=== PATIENT | female | born 1965 | race Caucasian/White ===

== ENCOUNTER 2020-06-12 08:50 | Outpatient (REF) | payer BC, SELFPAY ==
[2020-06-12 11:11] LABS: MANUAL DIFF FLAG NO
[2020-06-12 11:28] LABS: Basophils Absolute Auto 0.1 X10*3/uL (0.0-0.2); Basophils Percent Auto 1.2 % (0-2); Eosinophils Absolute Auto 0.5 X10*3/uL (0.0-0.4); Hematocrit 41.8 % (37-47); Hemoglobin 13.5 g/dl (12.0-16.0); Imm Gran Abs Auto 0.01 X10*3/uL (0.00-0.03); Imm Gran Pct Auto 0.2 % (0.0-0.4); Lymphocytes Absolute Auto 1.8 X10*3/uL (1.2-4.9); Lymphocytes Percent Auto 27.5 % (20-40); Mean Corpuscular HGB Conc 32.3 g/dl (31.0-35.0); Mean Corpuscular Hemoglobin 29.9 pg (27.0-33.0); Mean Corpuscular Volume 92.7 fL (80-98); Mean Platelet Volume 9.4 fL (9.4-12.3); Monocytes Absolute Auto 0.5 X10*3/uL (0.1-1.2); Monocytes Percent Auto 7.1 % (2-11); Neutrophils Absolute Auto 3.7 X10*3/uL (2.0-8.3); Platelet Count 293 X10*3/uL (160-400); Red Blood Count 4.51 X10*6/uL (4.20-5.50); Red Cell Distribution Width 11.3 % (11.0-16.0); White Blood Count 6.4 X10*3/uL (4.8-10.8)
[2020-06-12 11:42] LABS: Alanine Aminotransferase 19 U/L (0-31); Albumin Level 4.3 g/dL (3.5-5.0); Alkaline Phosphatase 66 U/L (39-117); Anion Gap 11 (12-20); Aspartate Amino Transferase 22 U/L (5-31); Bilirubin Total 0.6 mg/dL (0.0-1.0); Blood Urea Nitrogen 12 mg/dL (9-16); Calcium 9.5 mg/dL (8.4-10.2); Carbon Dioxide 30 mmol/L (22-29); Chloride 104 mmol/L (96-108); Cholesterol 219 mg/dL; Estimated Glomerular Filt Rate > 60; Glucose Fasting 84 mg/dL (60-99); HDL Cholesterol 73 mg/dL; LDL Cholesterol Calculated 127 mg/dl; Potassium 4.7 mmol/l (3.3-5.1); Sodium 140 mmol/L (135-145); Total Protein 6.7 g/dL (6.5-8.0); Triglycerides 98 mg/dL
[2020-06-12 12:06] LABS: TSH reflex Free T4 2.34 mIU/mL (0.32-4.0)
== END 2020-06-12 08:51 | disposition home or self-care (01) ==
LOC: HO.HMGCLDS 08:50
PROVIDERS: PCP Nurse Practitioner Family; Visit Provider Nurse Practitioner Family
DX: Z00.00 Encounter for general adult medical examination without abnormal findings (principal); Z78.0 Asymptomatic menopausal state
CPT/HCPCS: 36415; 80053; 80061; 82306; 84443; 85025

== ENCOUNTER → 2020-06-28 14:55 | Outpatient (BNVA) | payer BC, SELFPAY | PROVIDERS: PCP Nurse Practitioner Family; Visit Provider Nurse Practitioner Family | DX: Z76.89 Persons encountering health services in other specified circumstances (principal) ==

== ENCOUNTER → 2020-10-16 13:12 | Outpatient (BNVA) | payer BC, SELFPAY | PROVIDERS: PCP Nurse Practitioner Family; Visit Provider Internal Medicine Cardiovascular Disease | DX: R07.9 Chest pain, unspecified (principal) | CPT/HCPCS: 93005 ==

== ENCOUNTER 2020-11-14 07:03 | Day surgery (SDC) | payer BC, SELFPAY ==
--- NOTE | 2020-11-09 12:53 | HO.ANESPROP2 ---
Documented by User: Brianna Lita 11/10/20 08:40 HPI - Anesthesia Eval Consult details Narrative: 55yo F for Colonoscopy Recently seen by cardiology for exertional CP. Exercise stress negative. No further testing. (Active runner) *mult med allergies* PMFSH Active Problems Active Problems: All Active Problems (Updated 10/23/20 @ 13:02 by Joselo Palomares, [facility]) Plantar fasciitis (Acute) Chest pain (Acute) Retracted ear drum (Acute) Post-menopausal (Acute) Screening for colon cancer (Acute) Physical exam (Acute) Past Medical History Medical History (Updated 11/14/20 @ 07:49 by Tianna Bliss) BPV (benign positional vertigo) Hyperlipidemia Hypothyroid Retracted ear drum Family History Family History Father Unknown family medical history Mother Colon cancer Unknown family medical history Maternal Grandmother Cardiomyopathy Maternal Grandfather Myeloma Paternal Grandmother Medical history non-contributory Paternal Grandfather Medical history non-contributory Brother No problems noted. Brother No problems noted. Brother HTN (hypertension) Diabetes mellitus Son No problems noted. Son No problems noted. Surgical History Surgical History History of section History of nasal septoplasty History of repair of rotator cuff History of tonsillectomy Hx of removal of ovary Social History Social History Alcohol intake: never Patient Tobacco Use Status: Never used Tobacco Use of substances other than those prescribed or required for medical reasons: No Are you DNR?: No Advance Directives: Yes Advance Directives Information Provided: Yes Advance Directives on File: No Meds Allergies Allergy/AdvReac Type Severity Reaction Status Date / Time amoxicillin [Augmentin] Allergy Unknown rash Verified 10/16/20 13:19 cefuroxime [From Ceftin] Allergy Unknown Hives Verified 10/16/20 13:19 clavulanic acid [Augmentin] Allergy Unknown rash Verified 10/16/20 13:19 clindamycin [Cleocin] Allergy Unknown hives Verified 10/16/20 13:19 penicillin V Allergy Unknown rash Verified 10/16/20 13:19 Penicillins Allergy Unknown rash Verified 10/16/20 13:19 Home Medications Medication Instructions Recorded Confirmed Last Taken Type bupropion HCl 300 mg 24 hr tablet, 300 mg PO DAILY 06/08/20 10/16/20 Unknown History extended release Exam Exam Date and Time: November 09, 2020 1253 Narrative Narrative: EKG 10/2020 Normal sinus rhythm, normal EKG, QTC 430 milliseconds. Exercise stress 2020 exercise stress test where she was able to exercise to 12.7 Mets without any ECG changes or symptoms. She continues to be active and has been running marathons without any symptoms. Assessment and Plan Assessment Anesthesia Assessment: Chart Reviewed Documented by User: Tianna Bliss 11/14/20 07:50 PMF Past Medical History Medical History (Updated 11/14/20 @ 07:49 by Tianna Bliss) BPV (benign positional vertigo) Hyperlipidemia Hypothyroid Retracted ear drum Family History Family History Father Unknown family medical history Mother Colon cancer Unknown family medical history Maternal Grandmother Cardiomyopathy Maternal Grandfather Myeloma Paternal Grandmother Medical history non-contributory Paternal Grandfather Medical history non-contributory Brother No problems noted. Brother No problems noted. Brother HTN (hypertension) Diabetes mellitus Son No problems noted. Son No problems noted. Family history of problems with anesthesia: No Surgical History Surgical History History of section History of nasal septoplasty History of repair of rotator cuff History of tonsillectomy Hx of removal of ovary History of Problems with Anesthesia: No Social History Social History Alcohol intake: never Patient Tobacco Use Status: Never used Tobacco Use of substances other than those prescribed or required for medical reasons: No Are you DNR?: No Advance Directives: Yes Advance Directives Information Provided: Yes Advance Directives on File: No Meds Allergies Allergy/AdvReac Type Severity Reaction Status Date / Time amoxicillin [Augmentin] Allergy Unknown rash Verified 10/16/20 13:19 cefuroxime [From Ceftin] Allergy Unknown Hives Verified 10/16/20 13:19 clavulanic acid [Augmentin] Allergy Unknown rash Verified 10/16/20 13:19 clindamycin [Cleocin] Allergy Unknown hives Verified 10/16/20 13:19 penicillin V Allergy Unknown rash Verified 10/16/20 13:19 Penicillins Allergy Unknown rash Verified 10/16/20 13:19 Home Medications Medication Instructions Recorded Confirmed Last Taken Type bupropion HCl 300 mg 24 hr tablet, 300 mg PO DAILY 06/08/20 10/16/20 Unknown History extended release Exam Height,Weight and Vital Signs: Vital Signs Temp Pulse Resp BP Pulse Ox 11/14/20 07:19 98.5 F 75 16 115/64 99 Airway Mallampati Class: II TM Dist: >3cm Neck ROM: Full Loose/Missing/Broken Teeth: No Heart: RRR Lungs: CTAB Assessment and Plan Assessment Anesthesia Assessment: Anesthesia Plan Discussed and Chart Reviewed Final Anesthetic Review NPO: Yes ASA Class: II Final Preanesthetic Review: No Changes in Pt Med Stat, Meds/Allgs Chart Reviewed, Consent Obtained/Reviewed and Anes Risks/Benef Reviewed Patient Risk: Low Procedure Risk: Low Assessment/Block/Sedation in SS: Assess/Block/Sedation-SS Anesthetic Plan Anesthetic Plan: MAC: Disposition: Standard PACU
[2020-11-14 07:09] VITALS: BMI 25.0
[2020-11-14 07:19] VITALS: BP 115/64; PULSE 75; RESP 16; TEMP 36.9; O2SAT 99
[2020-11-14] MEDS: Lactated Ringers 1,000 ML 100 ML IVCONT (07:33)
--- NOTE | 2020-11-14 08:08 | P.OP_ITS ---
Operative Note Operative Note Date of Service: 11/14/20 Narrative: Pre-op diagnosis: Colon cancer screening, family history of colon cancer (mom was diagnosed with stage IV colon cancer at age 68 years) Post-op diagnosis: other (Diverticulosis) Procedure: COLONOSCOPY TILL CECUM Consent: Indications for the procedure and potential complications of bleeding, perforation, reaction to medications and missed diagnosis were discussed with the patient and informed consent was obtained. Instrument: Olympus PCF H 190 L variable stiffness pediatric colonoscope Monitoring: Vital signs and clinical assessment, intermittent blood pressure monitoring, continuous EKG monitoring, Pulse oximetry and Carbon Dioxide monitoring were done throughout the procedure. Colon withdrawl time was 26 minutes. Procedure: The patient was placed in the left lateral decubitis position and pre-procedure medications were administered. After a digital rectal examination of the ano-rectum, the video colonoscope was inserted into the rectum and advanced through the colon to the cecum. The colonoscope was slowly withdrawn in a retrograde panoramic fashion and the colon mucosa was carefully examined including a retroflexed view of the rectum. Findings and interventions are described below. Procedure Difficulty: Colon was long and tortuous and there was some loop formation - no maneuvers were required Findings: Terminal Ileum: Not evaluated Cecum: Normal Ascending Colon: Normal Transverse Colon: Normal Descending Colon: Normal Sigmoid Colon: Moderate diverticulosis Rectum: Normal Ano-rectum: Normal Colon preparation: Good after copious irrigation (pt stated she vomited part of her prep) Impression and Post Procedure Diagnosis: Colonoscopy Findings: No polyps were detected Moderate diverticulosis seen in the sigmoid colon Plan: Repeat Colonoscopy in 10 years (since this is her 4th negative colonoscopy). Above findings were reviewed with the patient and diverticulosis handout was given in the discharge area Surgeon: Anthony Haro MD Anesthesia: MAC (Bia Cummings CRNA & Dr Bliss) Was an Hardboard Factory Worker used for this Procedure?: Yes Hardboard Factory Worker: Praful Ford Estimated blood loss (mL): 0 Pathology: none sent Condition: stable Disposition: PACU
--- NOTE | 2020-11-14 08:08 | MHC.SHP ---
Pre-Procedural Eval Section A The patient is an INPATIENT: No The History & Physical has been completed within 30 days and I have reviewed it.: No Section B Chief Complaint: Screening Details of Present Illness: Colon cancer screening, family history of colon cancer (Mom diagnosed with stage 4 colon cancer at age 68 yrs) Relevant Family History (Specify if Yes): Yes Relevant Social History: None Present Medications: see Short Stay Collaborative assessment Medical History: Significant History (BPV (benign positional vertigo) Hyperlipidemia Hypothyroid Retracted ear drum) History of Previous Operations: Relevant previous surgery/procedure and date(s) (History of section History of nasal septoplasty History of repair of rotator cuff History of tonsillectomy Hx of removal of ovary) Allergies: Allergies Allergy/AdvReac Type Severity Reaction Status Date / Time amoxicillin [Augmentin] Allergy Unknown rash Verified 10/16/20 13:19 cefuroxime [From Ceftin] Allergy Unknown Hives Verified 10/16/20 13:19 clavulanic acid [Augmentin] Allergy Unknown rash Verified 10/16/20 13:19 clindamycin [Cleocin] Allergy Unknown hives Verified 10/16/20 13:19 penicillin V Allergy Unknown rash Verified 10/16/20 13:19 Penicillins Allergy Unknown rash Verified 10/16/20 13:19 Review of Systems Sugical H&P ROS: Negative: Constitution, Cardiovascular, Respiratory and Gastrointestinal Exam Surgical H&P Exam: Normal: Heart, Normal: Lungs, Normal: Extremities and Normal: Abdomen Plan Diagnosis/Plan: Unchanged I have reviewed the history and physical and performed a pertinent physical examination on my patient. No changes have occurred unless specified.
[2020-11-14 08:58] VITALS: BP 111/62; PULSE 67; RESP 16; TEMP 36.9; O2SAT 98
[2020-11-14 09:13] VITALS: BP 121/75; PULSE 55; RESP 18; TEMP 36.9; O2SAT 98
== END 2020-11-14 10:00 | disposition home or self-care (01) ==
PROVIDERS: PCP Nurse Practitioner Family; Visit Provider Internal Medicine Gastroenterology
PROC: 0DJD8ZZ Inspection of Lower Intestinal Tract, Via Natural or Artificial Opening Endoscopic (ICD-10-PCS; CPT 45378; principal; 2020-11-14 08:20)
DX: Z12.11 Encounter for screening for malignant neoplasm of colon (principal); Z80.0 Family history of malignant neoplasm of digestive organs; K57.30 Diverticulosis of large intestine without perforation or abscess without bleeding; H81.10 Benign paroxysmal vertigo, unspecified ear; Z79.899 Other long term (current) drug therapy; Z88.0 Allergy status to penicillin
CPT/HCPCS: 45378

== ENCOUNTER 2022-01-18 09:44 | Outpatient (REF) | payer BC, SELFPAY ==
[2022-01-18 11:54] LABS: MANUAL DIFF FLAG NO
[2022-01-18 12:04] LABS: Basophils Absolute Auto 0.1 X10*3/uL (0.0-0.2); Basophils Percent Auto 1.1 % (0-2); Eosinophils Absolute Auto 0.5 X10*3/uL (0.0-0.4); Eosinophils Percent Auto 6.6 % (0-4); Hematocrit 39.2 % (37.0-47.0); Hemoglobin 13.2 g/dl (12.0-16.0); Imm Gran Abs Auto 0.02 X10*3/uL (0.00-0.03); Imm Gran Pct Auto 0.3 % (0.0-0.4); Lymphocytes Absolute Auto 1.6 X10*3/uL (1.2-4.9); Lymphocytes Percent Auto 22.7 % (20-40); Mean Corpuscular HGB Conc 33.7 g/dl (31.0-35.0); Mean Corpuscular Volume 89.1 fL (80.0-98.0); Mean Platelet Volume 9.7 fL (9.4-12.3); Monocytes Absolute Auto 0.6 X10*3/uL (0.1-1.2); Monocytes Percent Auto 8.9 % (2-11); Neutrophils Absolute Auto 4.2 x10*3/uL (2.0-8.3); Neutrophils Percent Auto 60.4 % (45-73); Platelet Count 318 X10*3/uL (160-400); Red Cell Distribution Width 11.3 % (11.0-16.0)
[2022-01-18 12:17] LABS: Appearance Urine HAZY; Color Urine YELLOW; Glucose Urine UA NEG (NEG); Leukocyte Esterase Urine NEG (NEG); Nitrite Urine NEG (NEG); PH 5.5 (5.0-8.0); Specific Gravity - Urine 1.025 (1.005-1.025); Urine Blood NEG (NEG); Urine Ketones NEG (NEG); Urine Protein NEG (NEG-TRACE)
[2022-01-18 12:34] LABS: Alanine Aminotransferase 26 U/L (0-31); Albumin Level 4.2 g/dL (3.5-5.0); Alkaline Phosphatase 62 U/L (39-117); Anion Gap 13 (12-20); Aspartate Amino Transferase 26 U/L (5-31); Bilirubin Total 0.7 mg/dL (0.0-1.0); Blood Urea Nitrogen 14 mg/dL (9-16); Calcium 9.3 mg/dL (8.4-10.2); Carbon Dioxide 27 mmol/L (22-29); Chloride 104 mmol/L (96-108); Cholesterol 220 mg/dL; Estimated Glomerular Filt Rate > 60; Glucose Fasting 89 mg/dL (60-99); HDL Cholesterol 68 mg/dL; Iron 141 mcg/dL (30-160); LDL Cholesterol Calculated 123 mg/dl; Percent Iron Saturation 41 % (15-50); Potassium 4.7 mmol/L (3.3-5.1); Sodium 139 mmol/L (135-145); Total Iron Binding Capacity 341 mcg/dL (228-428); Total Protein 6.7 g/dL (6.5-8.0); Triglycerides 149 mg/dL; Unsaturated Iron Binding 200 ug/dL
[2022-01-18 12:39] LABS: Ferritin 46 ng/mL (10-250); TSH reflex Free T4 2.29 uIU/mL (0.32-4.0)
[2022-01-18 12:52] LABS: Folate 11.7 ng/mL (> or = 4.0); Vitamin B12 665 pg/mL (200-900)
== END 2022-01-18 09:45 | disposition home or self-care (01) ==
LOC: HO.HMGCLDS 09:44
PROVIDERS: PCP Nurse Practitioner Family; Visit Provider Nurse Practitioner Family
DX: Z00.00 Encounter for general adult medical examination without abnormal findings (principal); R53.83 Other fatigue
CPT/HCPCS: 36415; 80053; 80061; 81003; 82607; 82728; 82746; 83540; 84443; 85025

== ENCOUNTER 2022-04-24 10:17 | Outpatient (REF) | payer BC, SELFPAY ==
[2022-04-24 12:28] LABS: Cholesterol 223 mg/dL; HDL Cholesterol 73 mg/dL; LDL Cholesterol Calculated 129 mg/dl; Triglycerides 106 mg/dL
== END 2022-04-24 10:18 | disposition home or self-care (01) ==
LOC: HO.HMGCLDS 10:17
PROVIDERS: PCP Nurse Practitioner Family; Visit Provider Nurse Practitioner Family
DX: E78.5 Hyperlipidemia, unspecified (principal)
CPT/HCPCS: 36415; 80061

== ENCOUNTER 2022-08-30 10:45 | Outpatient (REF) | payer BC, SELFPAY ==
[2022-08-30 13:42] LABS: Alanine Aminotransferase 24 U/L (0-31); Albumin Level 4.4 g/dL (3.5-5.0); Alkaline Phosphatase 65 U/L (39-117); Anion Gap 12 (12-20); Aspartate Amino Transferase 32 U/L (5-31); Bilirubin Total 0.9 mg/dL (0.0-1.0); Blood Urea Nitrogen 16 mg/dL (9-16); Calcium 9.6 mg/dL (8.4-10.2); Carbon Dioxide 26 mmol/L (22-29); Chloride 108 mmol/L (96-108); Cholesterol 215 mg/dL; Estimated Glomerular Filt Rate > 60; Glucose Random 94 mg/dL (60-115); HDL Cholesterol 74 mg/dL; LDL Cholesterol Calculated 128 mg/dl; Potassium 4.8 mmol/L (3.3-5.1); Sodium 141 mmol/L (135-145); Total Protein 6.9 g/dL (6.5-8.0); Triglycerides 65 mg/dL
== END 2022-08-30 10:46 | disposition home or self-care (01) ==
LOC: HO.HMGCLDS 10:45
PROVIDERS: PCP Nurse Practitioner Family; Visit Provider Nurse Practitioner Family
DX: E78.5 Hyperlipidemia, unspecified (principal)
CPT/HCPCS: 36415; 80053; 80061

== ENCOUNTER 2022-09-25 07:38 | Outpatient (REF) | payer BC, SELFPAY ==
--- NOTE | ~2022-09-25 | US_ITS ---
EXAMINATION: US ABDOMEN COMPLETE CLINICAL INFORMATION: Abnormal levels of other serum enzymes. COMPARISON: Ultrasound abdomen complete 07/28/2019 and 07/22/2013. TECHNIQUE: Real-time imaging of the abdominal viscera. Technically limited study secondary to bowel gas/shadowing. FINDINGS: PANCREAS: The head and body appear normal. The tail is obscured by bowel gas. ABDOMINAL AORTA: The proximal, mid, and distal segments are normal in caliber. INFERIOR VENA CAVA: Visualized portions are normal. LIVER: Normal. The liver is normal in size. The liver contour is normal. Parenchymal echogenicity is normal. No focal hepatic lesion. There is no intrahepatic biliary duct dilatation seen. GALLBLADDER: Normal. The gallbladder is physiologically distended without evidence of stones, sludge, polyps, wall thickening or pericholecystic fluid. COMMON BILE DUCT: Normal in caliber measuring 0.5 cm in diameter. RIGHT KIDNEY: Normal. No hydronephrosis. No renal calculi or focal parenchymal lesions. The kidney measures 10.4 cm in maximum dimension. LEFT KIDNEY: Normal. No hydronephrosis. No renal calculi or focal parenchymal lesions. The kidney measures 10.3 cm in maximum dimension. SPLEEN: Normal. The spleen measures 9.9 cm in maximum dimension. FREE FLUID: None. US/US abdomen complete IMPRESSION: Mildly limited examination due to bowel gas. Otherwise normal abdominal ultrasound.
== END 2022-09-25 07:39 | disposition home or self-care (01) ==
LOC: HO.US 07:38
PROVIDERS: PCP Nurse Practitioner Family; Visit Provider Nurse Practitioner Family
DX: R74.8 Abnormal levels of other serum enzymes (principal)
CPT/HCPCS: 76700

== ENCOUNTER 2023-04-17 08:12 | Outpatient (AMB) | payer BC, SELFPAY ==
[2023-04-17 09:22] VITALS: BP 118/60; PULSE 63; TEMP 36.4; O2SAT 99; BMI 28.3
--- NOTE | 2023-04-17 09:22 | MHC.OFFWIV ---
Intake Vital Signs 04/17/23 09:22 Height 5 ft 1 in Weight 68.039 kg BMI 28.3 BP 118/60 Blood Pressure Location Lt brachial Position Sitting Pulse 63 Pulse Source Pulse Oximeter Temp 97.6 F Temp Source Temporal Artery Scan Pulse Oximetry (%) 99 Intake Visit Reasons: EP, sinus congestion, headache (masked) Intake Note: pt is here for c/o sinus congestion and headache Patient Tobacco Use Status: Never used Tobacco Allergies amoxicillin [Augmentin] Allergy (Unknown, Verified 04/17/23 09:23) rash cefuroxime [From Ceftin] Allergy (Unknown, Verified 04/17/23 09:23) Hives clavulanic acid [Augmentin] Allergy (Unknown, Verified 04/17/23 09:23) rash clindamycin [Cleocin] Allergy (Unknown, Verified 04/17/23 09:23) hives penicillin V Allergy (Unknown, Verified 04/17/23 09:23) rash Penicillins Allergy (Unknown, Verified 04/17/23 09:23) rash Do you need a note to return to daycare/school/sports/work: Yes HPI HPI Comments History of Present Illness Details This is a 58-year-old female with past medical history of dyslipidemia, plantar fasciitis, presenting to the emergency department for sick visit complaining of facial congestion, sinus pressure, bilateral ear discomfort, fatigue, malaise for the past 2 weeks patient reports she frequently gets sinus infections and this feels like her typical 1. Denies chest pain, shortness of breath, fevers, chills, nausea, vomiting, diarrhea, vision changes. At times feeling lightheaded/disequilibrium. NIH stroke scale 0. Physical examination with pressure to face with forward bending and discomfort with palpation of facial sinuses. Neurological assessment intact. Cerebellar function intact. Concerns for sinusitis versus viral illness. Unlikely pulmonary embolism, pneumonia, meningitis, encephalitis, otitis media, otitis externa or mastoiditis. Plan was discharged home on doxycycline as she does have a penicillin allergy, will also give prednisone. Educated patient on diagnosis and treatment plan, answered all question, patient verbalizes understanding. At this time patient will be discharged home, advised to return with new or worsening symptoms. Educated on worrisome signs and symptoms and when to return. At this time I feel comfortable discharge home. [facility] Medical History Hypothyroid BPV (benign positional vertigo) Hyperlipidemia Retracted ear drum Surgical History Hx of removal of ovary History of nasal septoplasty History of tonsillectomy History of section History of repair of rotator cuff Family History Father Unknown family medical history Mother Colon cancer Unknown family medical history Maternal Grandmother Cardiomyopathy Maternal Grandfather Myeloma Paternal Grandmother Medical history non-contributory Paternal Grandfather Medical history non-contributory Brother No problems noted. Brother No problems noted. Brother HTN (hypertension) Diabetes mellitus Son No problems noted. Son No problems noted. Maternal Uncle Mental health disorder Social History Housing: [facility] Alcohol intake: never Patient Tobacco Use Status: Never used Tobacco e-Cigarette/Vaping Use: Never Used Second Hand Smoke Exposure: No service: No Current occupational status: employed Current occupation: [employer] Current occupational exposures/hazards: No Cognitive needs: No Hearing needs: No Vision needs: No Review of Systems Const Details: Constitutional : No Weight loss, No Fever, No Chills, + Fatigue, + Malaise ENT/Mouth : No sore throat, No Rhinorrhea, + congestion Eyes: No Eye Pain, No Swelling, No Redness Cardiovascular : No Chest Pain, No SOB, No Dyspnea on Exertion, No Orthopnea, No Edema, No Palpitations Respiratory : No Cough, No Sputum, No Wheezing Gastrointestinal : No Nausea, No Vomiting, No Diarrhea, No Constipation, No abdominal Pain, No Hematochezia, No Melena Genitourinary : No Dysuria, No Urinary Frequency, No Hematuria, Musculoskeletal : No joint pain, No Myalgias, No Joint Swelling Skin : No Skin Lesions, No rash Neuro : No Weakness, No Numbness, No Dizziness, No Headache Psych : No Anxiety/Panic, No Depression All other systems reviewed and are negative All systems reviewed & are unremarkable except as noted in HPI and below Physical Exam Vital Signs: Last Vital Signs Temp 97.6 F 04/17/23 09:22 Pulse 63 04/17/23 09:22 BP 118/60 11/02/23 09:22 Pulse Ox 99 04/17/23 09:22 BMI result Body Mass Index 28.3 vss Appearance: Alert.? Oriented X3.? No acute distress.? Head: Normocephalic, atraumatic, no step-offs or deformities. pressure to face with forward bending and discomfort with palpation of facial sinuses. Eyes: Pupils equal, round and reactive to light.? ENT: Pharynx normal.? Neck: Normal inspection.? Neck supple.? CVS: Normal heart rate and rhythm.? Pulses normal.? Respiratory: No respiratory distress.? Breath sounds normal.? Abdomen: Soft and nontender.? Skin: Skin warm and dry.? Normal skin color.? Normal skin turgor.? Extremities: No lower extremity edema.? No calf ttp. 5/5 strength to bilateral upper and lower extremities Neuro: Oriented X 3.? No motor deficit.? No sensory deficit. CN 2-12 intact Assessment & Plan Assessment & Plan (1) Sinusitis: Code(s): J32.9 - Chronic sinusitis, unspecified Plan Take your medications as prescribed. If you were prescribed antibiotics today, it is important that you take your medication to their entirety, do not skip any doses, do not finish them early. Follow-up with your primary care provider this week. Return to the emergency department with new or worsening symptoms. Such as fevers, chills, chest pain, shortness of breath, nausea, vomiting, dizziness, headache, vision changes, lethargy In case of emergency call 911 Medications: New doxycycline hyclate 100 mg PO BID 14 caps 0RF 7 days prednisone 40 mg (2 x 20 mg) PO DAILY 10 tabs 0RF 5 days Coding Level of Care Code Est Pt Level 3 (94909) Diagnoses Sinusitis J32.9
== END 2023-04-17 11:16 | disposition home or self-care (01) ==
PROVIDERS: PCP Nurse Practitioner Family; Visit Provider Physician Assistant
DX: J32.9 Chronic sinusitis, unspecified (principal)
CPT/HCPCS: 99213

== ENCOUNTER 2023-05-19 13:36 | Outpatient (AMB) | payer BC, SELFPAY ==
[2023-05-19 13:43] VITALS: BP 112/72; PULSE 60; O2SAT 96; BMI 28.7
--- NOTE | 2023-05-19 13:43 | A.OFFPC_ITS ---
Vital Signs 05/19/23 13:43 Height 5 ft 1 in Weight 152 lb BMI 28.7 BP 112/72 Blood Pressure Location Lt brachial Position Sitting Pulse 60 Pulse Source Pulse Oximeter Pulse Oximetry (%) 96 Oxygen Delivery Method Room Air Intake Visit Reasons: Annual PE Intake Note: Pt is here today for her PE: Had her mammogram this morning at the [facility] and pap smear at [facility] also his morning Allergies amoxicillin [Augmentin] Allergy (Unknown, Verified 05/19/23 13:43) rash cefuroxime [From Ceftin] Allergy (Unknown, Verified 05/19/23 13:43) Hives clavulanic acid [Augmentin] Allergy (Unknown, Verified 05/19/23 13:43) rash clindamycin [Cleocin] Allergy (Unknown, Verified 05/19/23 13:43) hives penicillin V Allergy (Unknown, Verified 05/19/23 13:43) rash Penicillins Allergy (Unknown, Verified 05/19/23 13:43) rash Medication List - Last Reconciled 05/19/23 by MOO Martin simvastatin 60 mg (1.5 x 40 mg) PO BEDTIME 90 days Tobacco use date assessed: 05/19/23 Dental Screening Dental Screen Date: 05/19/23 Did you have a dental visit in the last 12 months?: Yes Did you have a dental problem in the last 6 months where you did not have access to dental care?: Yes Was dental information given to patient?: Patient has dentist HPI Annual PE HPI Details Pt is here for a PE. Will order labs. Colon screen is up to date. Mammogram is up to date. 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 PFSH Medical History Hypothyroid BPV (benign positional vertigo) Hyperlipidemia Retracted ear drum Surgical History Hx of removal of ovary History of nasal septoplasty History of tonsillectomy History of section History of repair of rotator cuff Family History Father Unknown family medical history Mother Colon cancer Unknown family medical history Maternal Grandmother Cardiomyopathy Maternal Grandfather Myeloma Paternal Grandmother Medical history non-contributory Paternal Grandfather Medical history non-contributory Brother No problems noted. Brother No problems noted. Brother HTN (hypertension) Diabetes mellitus Son No problems noted. Son No problems noted. 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 1. Little interest or pleasure in doing things: several days 2. Feeling down, depressed, or hopeless: several days 3. Trouble falling or staying asleep, or sleeping too much: several days 4. Feeling tired or having little energy: several days 5. Poor appetite or overeating: several days 6. Feeling bad about yourself - or that you are a failure or have let yourself or your family down: several days 7. Trouble concentrating on things, such as reading the newspaper or watching television: several days 8. Moving or speaking so slowly that other people could have noticed. Or the opposite - being so fidgety or restless that you have been moving around a lot more than usual: several days 9. Thoughts that you would be better off or of hurting yourself in some way: several days Total score: 9 Depression Screening Interpretation: Positive Depression Screening Follow-up: Existing condition and Declines treatment Depression Screening Done: Yes Source: Developed by Drs. Jaya Gordillo, Beronica Gabriel, Quinton Morales and colleagues, with an educational fatmata from [email or web address]. Thrive Questionnaire Date Thrive assessed: 05/19/23 I am a: Patient What is your living situation today?: I have a steady place to live Within the past 12 months, did the food you bought not last and you didn't have the money to get more?: Never true Within the past 12 months, did you worry whether your food would run out before you got money to buy more?: Never true Do you have trouble paying for medicines?: No Do you have trouble getting transportation to medical appointments?: No Do you have trouble paying your heating and electricity bill?: No Do you have trouble taking care of your child, family member or friend?: No Do you have trouble with day-to-day activities such as bathing, preparing meals, shopping, managing finances, etc.?: No Are you currently unemployed and looking for a job?: No Are you interested in more education?: No Currently or been in a relationship where the following occur: no concerns reported AUDIT C Alcohol Use Questionnaire (AUDIT-C) 1. How often do you have a drink containing alcohol?: Never Total Score: 0 MOMO-7 AMB Questionnaire MOMO-7 Date MOMO - 7 assessed: 05/19/23 Feeling nervous, anxious, or on edge: 1 = Several days Not being able to stop or control worryin = Several days Worrying too much about different things: 1 = Several days Trouble relaxin = More than half the days Being so restless that it is hard to sit still: 1 = Several days Becoming easily annoyed or irritable: 1 = Several days Feeling afraid as if something awful might happen: 1 = Several days Total MOMO-7 score (0-4 normal; 5-9 mild; 10-14 moderate; 15-21 severe): 8 Source: Developed by Drs. Jaya Gordillo, Beronica Gabriel, Quinton Morales and colleagues, with an educational fatmata from [email or web address]. Review of Systems Const Denies chills and Denies fever(s) Eyes Denies blurry vision ENT Denies vertigo, Denies dizziness and Denies sore throat Card Denies chest pain at rest, Denies chest pain with activity, Denies diaphoresis, Denies dyspnea and Denies dyspnea on exertion Resp Denies cough, Denies dyspnea, Denies dyspnea on exertion and Denies wheezing GI Denies abdominal pain, Denies melena, Denies hematochezia, Denies constipation, Denies diarrhea and Denies loose stools Denies hematuria Musc Denies numbness and Denies tingling Skin/Breast Denies lesions Neuro Denies vertigo, Denies dizziness, Denies numbness and Denies tingling Psych Denies anxiety, Denies depression, Denies homicidal ideation, Denies suicidal ideation and Denies other (substance abuse) Aller/Immun Denies wheezing Physical exam (Primary Care) Vital Signs: Last Vital Signs Pulse 60 05/19/23 13:43 BP 112/72 05/19/23 13:43 Pulse Ox 96 05/19/23 13:43 Oxygen Delivery Method Room Air 05/19/23 13:43 BMI result Body Mass Index 28.7 Tobacco/Smoking Status: Tobacco use Status Tobacco use date assessed 05/19/23 05/19/23 13:47 Patient Tobacco Use Status Never used Tobacco 05/19/23 13:47 e-Cigarette/Vaping Use Never Used 05/19/23 13:47 PHQ-9: PHQ-9 Score PHQ-9: Total score 9 05/19/23 14:03 Depression Screening Interpretation: Positive Depression Screening Follow-up: Existing condition and Declines treatment Thrive Assessment: Date of Thrive Assessment Date Thrive assessed 05/19/23 05/19/23 13:47 Currently or been in a relationship where the following occur: no concerns reported Const General: cooperative Nutritional Appearance: well nourished Orientation/consciousness: patient oriented x3 HENMT Head: Yes normal to inspection, Yes normocephalic and Yes atraumatic Ears: TM's normal bilaterally Eyes General: appearance normal, both eyes and all related structures Alignment and Position: alignment normal and position normal Neck Neck: Yes normal visual inspection and Yes no lymphadenopathy Thyroid: Thyroid normal Resp Effort & Inspection: normal respiratory effort Auscultation: clear to auscultation bilaterally Cardio Rate: bradycardic Rhythm: regular rhythm Heart sounds: S1 normal heart sound present, S2 normal heart sound present and no murmurs GI Palpation (GI): Soft to palpation and nontender Auscultation: normal bowel sounds Skin Rashes: no rashes Neuro General: patient oriented x3, moves all extremities, no focal motor deficits and deep tendon reflexes 2+ bilaterally Romberg Test: Negative Psych Appearance: grossly normal Mental Status: mental status grossly normal Speech and movement: Normal speech and movement present Affect: normal affect Attitude: cooperative Thought process: Normal thought process present Thought content: Normal thought content present Insight: Good insight present (Psych) Judgement: Good judgement present (Psych) Assessment and Plan Assessment & Plan (1) Physical exam: Code(s): Z00.00 - Encounter for general adult medical examination without abnormal findings (2) Post-menopausal: Code(s): Z78.0 - Asymptomatic menopausal state Plan The patient agreed to the use of a biomedical electronics technician for this encounter. Scribed for MOO Caldwell by Jaimie Eldridge biomedical electronics technician, on 05/19/2023 at 13:55 EST. Orders: Orders TSH reflex Free T4 Today Z00.00 - Encounter for general adult medical examination without abnormal findings UA CC w/rflx Micro + Cult Today Z00.00 - Encounter for general adult medical examination without abnormal findings Lipid Panel Today Z00.00 - Encounter for general adult medical examination without abnormal findings Vitamin D 25-OH Total Today Z78.0 - Asymptomatic menopausal state Complete Blood Count Auto Diff Today Z00.00 - Encounter for general adult medical examination without abnormal findings Comprehensive [place]. Panel Fast Today Z00.00 - Encounter for general adult medical examination without abnormal findings Coding Level of Care Code Est Pt Prev Care 40-64y(55641) Diagnoses Physical exam Z00.00 Post-menopausal Z78.0
== END 2023-05-19 14:16 | disposition home or self-care (01) ==
PROVIDERS: PCP Nurse Practitioner Family; Visit Provider Nurse Practitioner Family
DX: Z00.00 Encounter for general adult medical examination without abnormal findings (principal); Z78.0 Asymptomatic menopausal state
CPT/HCPCS: 99396

== ENCOUNTER 2023-05-20 07:40 | Outpatient (REF) | payer BC, SELFPAY ==
[2023-05-20 10:31] LABS: MANUAL DIFF FLAG NO
[2023-05-20 10:50] LABS: Appearance Urine Clear; Color Urine Yellow; Glucose Urine UA Negative (Negative); Leukocyte Esterase Urine Negative (Negative); Nitrite Urine Negative (Negative); Specific Gravity - Urine 1.015 (1.005-1.025); Urine Blood Negative (Negative); Urine Ketones Negative (Negative); Urine Protein Negative (Neg-Trace)
[2023-05-20 11:03] LABS: Basophils Absolute Auto 0.1 X10*3/uL (0.0-0.2); Basophils Percent Auto 0.7 % (0-2); Eosinophils Absolute Auto 0.2 X10*3/uL (0.0-0.4); Eosinophils Percent Auto 3.6 % (0-4); Hematocrit 38.6 % (37.0-47.0); Hemoglobin 12.8 g/dl (12.0-16.0); Imm Gran Abs Auto 0.02 X10*3/uL (0.00-0.03); Imm Gran Pct Auto 0.3 % (0.0-0.4); Lymphocytes Absolute Auto 2.1 X10*3/uL (1.2-4.9); Lymphocytes Percent Auto 30.8 % (20-40); Mean Corpuscular HGB Conc 33.2 g/dl (31.0-35.0); Mean Corpuscular Hemoglobin 30.3 pg (27.0-33.0); Mean Corpuscular Volume 91.3 fL (80.0-98.0); Mean Platelet Volume 9.2 fL (9.4-12.3); Monocytes Absolute Auto 0.6 X10*3/uL (0.1-1.2); Monocytes Percent Auto 8.7 % (2-11); Neutrophils Absolute Auto 3.7 x10*3/uL (2.0-8.3); Neutrophils Percent Auto 55.9 % (45-73); Platelet Count 338 X10*3/uL (160-400); Red Blood Count 4.23 X10*6/uL (4.20-5.50); Red Cell Distribution Width 11.5 % (11.0-16.0); White Blood Count 6.7 X10*3/uL (4.8-10.8)
[2023-05-20 11:24] LABS: Alanine Aminotransferase 23 U/L (0-31); Albumin Level 4.1 g/dL (3.5-5.0); Alkaline Phosphatase 66 U/L (39-117); Anion Gap 11 (12-20); Aspartate Amino Transferase 28 U/L (5-31); Bilirubin Total 0.8 mg/dL (0.0-1.0); Blood Urea Nitrogen 16 mg/dL (9-16); Calcium 9.4 mg/dL (8.4-10.2); Carbon Dioxide 27 mmol/L (22-29); Chloride 108 mmol/L (96-108); Cholesterol 208 mg/dL (<200); Estimated Glomerular Filt Rate > 60; Glucose Fasting 93 mg/dL (60-99); HDL Cholesterol 74 mg/dL (>40); LDL Cholesterol Calculated 112 mg/dL (<100); Potassium 4.6 mmol/L (3.3-5.1); Sodium 141 mmol/L (135-145); TSH reflex Free T4 2.82 uIU/mL (0.32-4.0); Total Protein 6.8 g/dL (6.5-8.0); Triglycerides 110 mg/dL (<150); Vitamin D 25-OH Total 45.5 ng/mL (>30)
== END 2023-05-20 07:41 | disposition home or self-care (01) ==
LOC: HO.HMGCLDS 07:40
PROVIDERS: PCP Nurse Practitioner Family; Visit Provider Nurse Practitioner Family
DX: Z00.00 Encounter for general adult medical examination without abnormal findings (principal); Z78.0 Asymptomatic menopausal state; E55.9 Vitamin D deficiency, unspecified; E78.5 Hyperlipidemia, unspecified; R53.83 Other fatigue
CPT/HCPCS: 36415; 80053; 80061; 81003; 82306; 84443; 85025

== ENCOUNTER 2023-09-22 08:07 | Outpatient (AMB) | payer BC, SELFPAY ==
[2023-09-22 08:20] VITALS: BP 114/70; PULSE 63; TEMP 36.7; O2SAT 97; BMI 28.9
--- NOTE | 2023-09-22 08:20 | MHC.OFFWIV ---
Intake Vital Signs 09/22/23 08:20 Height 5 ft 1 in Weight 153 lb 2 oz BMI 28.9 BP 114/70 Blood Pressure Location Lt brachial Position Sitting Pulse 63 Pulse Source Pulse Oximeter Temp 98.0 F Temp Source Oral Pulse Oximetry (%) 97 Oxygen Delivery Method Room Air Intake Visit Reasons: EP ?Sinus Infection Intake Note: Pt presents to the office today for questions of a sinus infection. Pt states this started a few weeks ago. Pt states she has ear and forehead pressure. Pt states she also has post nasal drip. Patient Tobacco Use Status: Never used Tobacco Allergies amoxicillin [Augmentin] Allergy (Unknown, Verified 09/22/23 08:22) rash cefuroxime [From Ceftin] Allergy (Unknown, Verified 09/22/23 08:22) Hives clavulanic acid [Augmentin] Allergy (Unknown, Verified 09/22/23 08:22) rash clindamycin [Cleocin] Allergy (Unknown, Verified 09/22/23 08:22) hives penicillin V Allergy (Unknown, Verified 09/22/23 08:22) rash Penicillins Allergy (Unknown, Verified 09/22/23 08:22) rash HPI HPI Comments History of Present Illness Details presents to walkin today for sick visit Complaining of sinus congestion, green mucus from the nares and sinus pressure for last couple of weeks She has had multiple sinus infections in the past, states this feels like another one Has been using saline nasal spray without improvement of her symptoms She also takes daily allergy medicine Denies hearing loss, drainage from ear, ringing in the ear, dizziness, syncope. Patient denies sore throat, cough, fever, vomiting, diarrhea, headache. PFSH Medical History Hypothyroid BPV (benign positional vertigo) Hyperlipidemia Retracted ear drum Surgical History Hx of removal of ovary History of nasal septoplasty History of tonsillectomy History of section History of repair of rotator cuff Family History Father Unknown family medical history Mother Colon cancer Unknown family medical history Maternal Grandmother Cardiomyopathy Maternal Grandfather Myeloma Paternal Grandmother Medical history non-contributory Paternal Grandfather Medical history non-contributory Brother No problems noted. Brother No problems noted. Brother HTN (hypertension) Diabetes mellitus Son No problems noted. Son No problems noted. Maternal Uncle Mental health disorder Social History Housing: Condominium Alcohol intake: never Patient Tobacco Use Status: Never used Tobacco e-Cigarette/Vaping Use: Never Used Second Hand Smoke Exposure: No service: No Current occupational status: employed Current occupation: [employer] Current occupational exposures/hazards: No Cognitive needs: No Hearing needs: No Vision needs: Yes Review of Systems Const All systems reviewed & are unremarkable except as noted in HPI and below Physical Exam Vital Signs: Last Vital Signs Temp 98.0 F 09/22/23 08:20 Pulse 63 09/22/23 08:20 BP 114/70 09/22/23 08:20 Pulse Ox 97 09/22/23 08:20 Oxygen Delivery Method Room Air 09/22/23 08:20 BMI result Body Mass Index 28.9 General: awake, alert, oriented. Answers questions appropriately. Fully engaged in examination. Skin: warm, dry, intact HEENT: Normocephalic. Hearing intact. Bilateral TMs normal to visual inspection. Tenderness to palpation/percussion over frontal and maxillary sinuses Cardiac: External chest normal in appearance. RRR Respiratory: No cough, audible wheezing or stridor. Abdomen: without gross distension. MS: No obvious swelling or deformities. Neurological: Oriented to person, place, time and situation. Thought process intact. Psychiatric: Appropriate mood and affect. Good judgment and insight. Assessment & Plan Assessment & Plan (1) Sinusitis: Code(s): J32.9 - Chronic sinusitis, unspecified Plan Z-Tyler as instructed, patient allergic to amoxicillin. Has had good results with Z-Tyler in the past. Rest, drink plenty of fluids, tylenol or motrin as needed. Follow up with pcp or in clinic for any new or worsening symptoms. Go to ER for shortness of breath, chest pain, palpitations, weakness, dizziness. Medications: New azithromycin For 250 mg dose pack: take 500 mg today (day 1), then 250 mg for 4 days (days 2-5) PO 6 tabs 0RF Coding Level of Care Code Est Pt Level 3 (00490) Diagnoses Sinusitis J32.9
== END 2023-09-22 10:31 | disposition home or self-care (01) ==
PROVIDERS: PCP Nurse Practitioner Family; Visit Provider Registered Nurse Emergency
DX: J32.9 Chronic sinusitis, unspecified (principal)
CPT/HCPCS: 99213